=== PATIENT | female | born 1990 | race Caucasian/White ===

== ENCOUNTER 2020-10-06 08:56 | Outpatient (CLI) | payer OTHER, SELFPAY ==
--- NOTE | 2020-10-06 09:08 | MM_ITS ---
WS: [id number] BILATERAL DIGITAL DIAGNOSTIC MAMMOGRAM MAMMOGRAPHY WITH CAD CLINICAL INFORMATION: BREAST LUMP COMPARISON: 7 ,018 TECHNIQUE: Bilateral CC, MLO, and ML views. FINDINGS: History of prior fibroadenoma resection right breast The breasts are composed of heterogeneous fibroglandular density, which can limit the detection of sm all underlying mass lesions. Partially obscured Ovoid densities deep to the areola along the posterio r nipple line measuring 1.7 x 1.6 cm and 1.3 cm. Recommend further evaluation with ultrasound. Left breast is unremarkable. ULTRASOUND BREAST RIGHT TECHNIQUE: Ultrasound right breast focused area of concern. CLINICAL INFORMATION: BREAST LUMP COMPARISON: None. FINDINGS: Ultrasound right breast at the 9:00 position. 2 adjacent lobulated well-circumscribed hypoechoic lesi ons measuring 1.9 x 1.1 x 1.5 cm and 1.5 x 1.3 x 1.5 cm. Findings are nonspecific but most likely rep resent fibroadenomas in a patient this age. Recommend further evaluation with ultrasound-guided biops y RIGHT BREAST MM/[place] [id number] IMPRESSION: BI-RADS: 4-Suspicious Finding-Biopsy Should Be Considered FOLLOW UP: US Guided Biopsy Recommended
--- NOTE | 2020-10-07 12:18 | PC.NURSE ---
Called Patient to try to schedule breast biopsy. Patient stated that she has already had a biopsy/removal of a fibroadenoma about 8 months ago. She isnt sure if she wants to go ahead with the biopsy and will speak to her pcp Dr. Stallworth about it first. Will let us know what she decides to do after speaking with him. Dilip OSBORN
--- NOTE | 2020-10-30 08:20 | PC.NURSE ---
Called pt again to see if she was still interested in having a biopsy of her breast. She said she is going to go to Dr. Mccartney to go ahead with a breast removal with biopsy. I told her if she needed anything from us to just give us a call. Pt had no further needs at this time. Dilip OSBORN
== END 2020-10-06 08:57 | disposition home or self-care (01) ==
LOC: RADSHAW 09:02
PROVIDERS: PCP Family Medicine; Visit Provider Family Medicine
DX: N63.15 Unspecified lump in the right breast, overlapping quadrants (principal)
CPT/HCPCS: 76642; 77066

== ENCOUNTER 2024-07-15 19:35 | Emergency (ER) | payer OTHER, SELFPAY ==
[2024-07-15 19:45] VITALS: BP 134/86; PULSE 104; RESP 16; TEMP 36.6; O2SAT 100; BMI 25.7
[2024-07-15 20:00] LABS: Basophils # 0.1 10^3/uL (0.0-0.1); Basophils % 0.5 %; Eosinophils # 0.2 10^3/uL (0.0-0.8); Eosinophils % 1.2 %; Hematocrit 42.5 % (36-47); Lymphocytes # 3.3 10^3/uL (0.8-4.8); Lymphocytes % 19.3 %; Mean Corpuscular HGB Conc 32.9 g/dL (30-55); Mean Corpuscular Hemoglobin 27.5 pg (27-33); Mean Corpuscular Volume 83.5 fl (85-98); Mean Platelet Volume 9.5 fL (7.4-10.4); Monocytes # 0.9 10^3/uL (0.2-0.9); Neutrophils # 12.52 10^3/uL (1.8-7.7); Neutrophils % 73.7 %; Nucleated Red Blood Cells % 0 %; Platelet Count 343 10^3/cmm (157-399); Red Blood Count 5.09 10^6/uL (3.85-5.65)
--- NOTE | 2024-07-15 20:26 | USR_ITS ---
PROCEDURE INFORMATION: Exam: US First Trimester, Transabdominal and US , Transvaginal Exam date and time: 07/15/2024 8:41 PM Age: 34 years old Clinical indication: Lmp or gestational age (in weeks): 5w 6d by lmp; Antepartum complications; ; Patient HX: G3-p2-a0-l2 presenting with positive hcg and heavy vaginal bleeding x 24 hours. ; Additional info: Threatened miscarriage LABS AND CLINICAL REPORTS: Choriogonadotropin in serum (Serum HCG): 697 mIU/mL Last menstrual period start date: 06/04/2024 Gestational age (Established): 5 w 6 d Estimated due date (Established): 03/11/2025 TECHNIQUE: Imaging protocol: Real-time transabdominal obstetrical ultrasound of the maternal pelvis and a first trimester , less than 14 weeks 0 days, with image documentation. Transvaginal imaging was used for better evaluation of the fetus, adnexa, and/or cervix. COMPARISON: No relevant prior studies available. FINDINGS: GESTATION: Gestation: Intrauterine gestational sac is not visible. Embryonic/ heart rate: Not applicable Extra-embryonic membranes/Placenta: Not applicable. Amniotic/Chorionic fluid: Not applicable. BIOMETRY: Gestational age (AUA): 5 weeks 6 days by menstrual dates MATERNAL: Uterus: Uterus measures 10.0 x 8.0 x 6.0 cm. Sub septate uterine morphology. Endometrial echo complex measures up to 1.3 cm. In nonspecific endometrial vascularity noted. Cervix: Unremarkable. Endocervical canal is closed. Right ovary/adnexa: Right ovary measures 4.1 cm x 3.5 cm x 1.4 cm. Right ovarian volume is 11 mL. Color Doppler flow imaging and spectral analysis confirm appropriate arterial and venous waveforms. Left ovary/adnexa: Left ovary measures 5.6 cm x 4.7 cm x 3.3 cm. Left ovarian volume is 45 mL. Left ovary is expanded by a dominant cyst. Color Doppler flow imaging and spectral analysis confirm appropriate arterial and venous waveforms. Intraperitoneal space: No extraovarian adnexal mass. No pelvic free fluid. US/US OB <= 14 weeks fetus [id number] IMPRESSION: Intrauterine gestational sac is not demonstrated. Findings are compatible with of unknown location. Differential diagnosis includes early IUP, early ectopic , or in progress/missed . Vascularized endometrial tissue may reflect retained products of conception if findings represent in progress. Recommend serial HCG and ultrasound to differentiate.
[2024-07-15 20:28] VITALS: BP 143/88; PULSE 108; RESP 16; O2SAT 100
[2024-07-15 20:29] LABS: Charge for UA Resulting for Rev
[2024-07-15 20:46] LABS: RBC Urine >100 /hpf (0-2); Squamous Epithelial Cell Urine 0-4 /hpf (0-5); UA Manual Slide Review YES; Urine Appearance Slightly Cloudy (CLEAR); Urine Color Red (Yellow)
[2024-07-15 20:47] LABS: Add Urine Culture? Yes; Mucus Urine 1+ /hpf
--- NOTE | 2024-07-15 21:09 | ED_ITS ---
HPI - 2 General: Chief complaint: Vaginal Bleeding Stated complaint: vag bleeding believes miscarrige Time Seen by Provider: 07/15/24 20:19 Source: patient Mode of arrival: ambulatory Limitations: no limitations History of Present Illness: 34-year-old female who states that she b elieves she may be 6 weeks states she had missed her period been having some bleeding starting yesterday passing some clots today some slight abdominal cramping. Patient denies any fevers. She denies any worsening improving factors denies any vomiting. Associated symptoms: Deny abdominal pain, headache(s), nausea or vomiting Related Data Allergies Allergy/AdvReac Type Severity Reaction Status Date / Time No Known Allergies Allergy Verified 07/15/24 19:50 Review of Systems 2 Const: Denies: fever(s), chills, body aches or change in appetite ENMT: Denies: throat pain or dental pain Card: Denies: chest pain Resp: Denies: dyspnea GI: Denies: abdominal pain, nausea, vomiting or diarrhea : Reports: vaginal bleeding Musc: Denies: neck pain or back pain Skin/Breast: Denies: rash Neuro: Denies: headache(s) Physical Exam 2 Const: COMMON NORMALS: no acute distress, patient oriented x3 and healthy appearing HENMT: COMMON NORMALS: normocephalic and atraumatic HEAD & SCALP: n ormocephalic and atraumatic Neck/C-Spine: COMMON NORMALS: full ROM and supple Chest: COMMONS NORMALS: normal inspection of the chest Resp: COMMON NORMALS: normal respiratory effort Cardio: RATE: tachycardic GI: COMMON NORMALS: Normal to inspection, nondistended, normoactive bowel sounds present, Soft to palpation, non-tender and no masses PALPATION: Yes Soft to palpation Extremity: COMMON NORMALS: normal to inspection and full ROM Neuro: COMMON NORMALS: patient oriented x3, moves all extremities and no focal motor deficits Psych: COMMON NORMALS: mental status grossly normal, Normal thought process present and cooperative THOUGHT PROCESS: Normal thought process present Skin: COMMON NORMALS: no rashes or lesions noted and no wounds GENERAL SKIN EXAM: no rashes or lesions noted Course 2 Vital Signs: Vital signs: Vital Signs Temperature 97.9 F 07/15/24 19:45 Pulse Rate 102 H 07/15/24 21:51 Respiratory Rate 16 07/15/24 21:51 Blood Pressure 130/85 07/15/24 21:51 Pulse Oximetry 96 07/15/24 21:51 Oxygen Delivery Me thod Room Air 07/15/24 21:30 MDM - OB/Uterine Contractions Medical Decision Making Patient presents for vaginal bleeding she is likely had a miscarriage versus threatened miscarriage bleeding has slowed here I did inform her she needs to follow-up with Dr. Stallworth this week she is to return if her bleeding worsens she understands agrees to plan Medical Records I reviewed the patient's medical records. Lab Data I reviewed the patient's lab results. 07/15/24 19:53 Laboratory Results WBC 17.00 10^3/uL (3.29-11.43) H 07/15/24 19:53 RBC 5.09 10^6/uL (3.85-5.65) 07/15/24 19:53 Hgb 14.00 g/dL (11.27-16.99) 07/15/24 19:53 Hct 42.5 % (36-47) 07/15/24 19:53 MCV 83.5 fl (85-98) L 07/15/24 19:53 MCH 27.5 pg (27-33) 07/15/24 19:53 MCHC 32.9 g/dL (30-55) 07/15/24 19:53 RDW 13.0 % (12.1-15.1) 07/15/24 19:53 Plt Count 343 10^3/cmm (157-399) 07/15/24 19:53 MPV 9.5 fL (7.4-10.4) 07/15/24 19:53 Neut % (Auto) 73.7 % 07/15/24 19:53 Lymph % (Auto) 19.3 % 07/15/24 19:53 Brooks % (Auto) 5.0 % 07/15/24 19:53 Eos % (Auto) 1.2 % 07/15/24 19:53 Baso % (Auto) 0.5 % 07/15/24 19:53 Neut # (Auto) 12.52 10^3/uL (1.8-7.7) H 07/15/24 19:53 Lymph # (Auto) 3.3 10^3/uL (0.8-4.8) 07/15/24 19:53 Brooks # (Auto) 0.9 10^3/uL (0.2-0.9) 07/15/24 19:53 Eos # (Auto) 0.2 10^3/uL (0.0-0.8) 07/15/24 19:53 Baso # (Auto) 0.1 10^3/uL (0.0-0.1) 07/15/24 19:53 Nucleated RBC % (auto) 0 % 07/15/24 19:53 Nucleated RBCs # 0.0 /100WBC 07/15/24 19:53 Ser , Semi-Qnt 697.80 mIU/mL 07/15/24 19:53 Urine Color Red (Yellow) A 07/15/24 20:14 Urine Appearance Slightly cloudy (CLEAR) 07/15/24 20:14 Urine pH Not Reportable 07/15/24 20:14 Ur Specific [place] Not Reportable 07/15/24 20:14 Urine Protein Not Reportable 07/15/24 20:14 Urine Glucose (UA) Not Reportable 07/15/24 20:14 Urine Ketones Not Reportable 07/15/24 20:14 Urine Blood Not Reportable 07/15/24 20:14 Urine Nitrate Not Reportable 07/15/24 20:14 Urine Bilirubin Not Reportable 07/15/24 20:14 Urine Urobilinogen Not Reportable 07/15/24 20:14 Ur Leukocyte Esterase Not Reportable 07/15/24 20:14 Urine RBC >100 /hpf (0-2) H 07/15/24 20:14 Urine WBC 5-10 /hpf (0-5) H 07/15/24 20:14 Ur Squamous Epith Cells 0-4 /hpf (0-5) H 07/15/24 20:14 Amorphous Sediment Not Reportable 07/15/24 20:14 Urine Bacteria None /hpf (NONE) 07/15/24 20:14 Urine Mucus 1+ /hpf 07/15/24 20:14 Blood Type A Positive 07/15/24 19:53 Rho(D) Type Rh positive 07/15/24 19:53 Antibody Screen Negative 07/15/24 19:53 All radiology interpretation(s) finalized by discharge Discharge Plan Discharge Patient Disposition: Home Clinical Impression: Threatened miscarriage Condition: Stable Discharge Orders: Discharge ED (Routine); Ordered 07/15/24 Ordered By: Junaid Morocho Referrals: Andrew Stallworth MD [Primary Care Provider] - 4-7 days Discharge Diet: Advance as tolerated Discharge Activity: Resume usual activity Patient Instructions: Threatened Miscarriage (ED) Coding Level of Care Code ED [employer] for [employer]
[2024-07-15 21:30] VITALS: BP 117/89; RESP 117; O2SAT 96
[2024-07-15 21:51] VITALS: BP 130/85; PULSE 102; RESP 16; O2SAT 96
== END 2024-07-15 21:52 | disposition home or self-care (01) ==
PROVIDERS: Emergency Provider Emergency Medicine; PCP Family Medicine
DX: O20.0 Threatened abortion (principal); Z3A.01 Less than 8 weeks gestation of pregnancy
CPT/HCPCS: 36415; 76801; 81003; 81015; 84702; 85025; 86850; 86900; 87077; 87086; 87186; 99284

== ENCOUNTER 2025-03-04 14:39 | Outpatient (CLI) | payer OTHER, SELFPAY ==
--- NOTE | 2025-03-04 14:40 | MM_ITS ---
WS: [id number] VIEWS: MLO and CC views both breasts. 3D digital tomosynthesis is also included in this exam. Comparison made with prior exam of 05/15/2018 and 09/16/2020.. Findings: The breasts are extremely dense, which lowers the sensitivity of mammography. No sign of suspicious mass, tumor calcification or architectural distortion. MM/MM scr BI tomosynthesis [id number] Impression: BI-RADS: 2 - Benign FOLLOW-UP: 1 Year Follow-up This mammogram was also analyzed by the Computer Aided Detection System [employer].
== END 2025-03-04 14:40 | disposition home or self-care (01) ==
PROVIDERS: PCP Family Medicine; Visit Provider Family Medicine
DX: Z12.31 Encounter for screening mammogram for malignant neoplasm of breast (principal); R92.343 Mammographic extreme density, bilateral breasts
CPT/HCPCS: 77063; 77067